=== PATIENT | female | born 1950 | race Two or more races ===

== ENCOUNTER 2022-10-30 07:26 | Outpatient (CLI) | payer OTHER | END 2022-10-30 07:31 | disposition home or self-care (01) | LOC: NUCLEAR 07:26 | PROVIDERS: ATTEND Internal Medicine Cardiovascular Disease | DX: I25.10 Atherosclerotic heart disease of native coronary artery without angina pectoris (principal) | CPT/HCPCS: 78452; 93017; A9500; J0153 ==

== ENCOUNTER 2023-03-16 07:53 | Outpatient (CLI) | payer OTHER | END 2023-03-16 08:04 | disposition home or self-care (01) | LOC: NUCLEAR 07:53 | PROVIDERS: ATTEND Internal Medicine Pulmonary Disease | DX: G47.33 Obstructive sleep apnea (adult) (pediatric) (principal); R91.1 Solitary pulmonary nodule; Z77.22 Contact with and (suspected) exposure to environmental tobacco smoke (acute) (chronic); U07.1 COVID-19 | CPT/HCPCS: 78815; A9552 ==